=== PATIENT | male | born 1975 | race Caucasian/White ===

== ENCOUNTER 2023-04-30 11:31 | Observation (INO) ==
[2023-04-30] MEDS ORDERED: KETOROLAC TROMETHAMINE 15 MG/ML VIAL IV STA (12:23)
[2023-04-30] MEDS ORDERED: ONDANSETRON INJ 2 MG/ML 2 ML VIAL IV STA (12:23)
[2023-04-30] MEDS ORDERED: SODIUM CHLORIDE 0.9% 1,000 ML IV ONE (12:23)
[2023-04-30 12:48] LABS: Basophils # (auto) 0.04 K/uL (0.00-0.20); Basophils % (auto) 0.4 %; Eosinophils # (auto) 0.13 K/uL (0.00-0.50); Eosinophils % (auto) 1.1 %; Hematocrit (blood only) 42.9 % (42.0-52.0); Hemoglobin 15.2 g/dl (14.0-18.0); Immature Granulocytes # (auto) 0.05 K/uL (0.01-0.20); Immature Granulocytes % (auto) 0.4 %; Lymphocytes # (auto) 2.49 K/uL (1.20-3.40); Lymphocytes % (auto) 21.9 %; Mean Corpuscular Hemoglobin 30.2 pg (25.0-34.0); Mean Corpuscular Hgb Conc 35.4 g/dL (32.0-36.0); Mean Corpuscular Volume 85.3 fL (80.0-100.0); Mean Platelet Volume 10.1 fL (9.4-12.4); Monocytes # (auto) 0.86 K/uL (0.11-0.59); Monocytes % (auto) 7.6 %; Neutrophils # (auto) 7.78 K/uL (1.40-6.50); Neutrophils % (auto) 68.6 %; Platelet Count 248 K/uL (130-400); RDW Coefficient of Variation 13.2 % (11.5-14.5); RDW Standard Deviation 40.9 fL (36.4-46.3); Red Blood Count 5.03 M/uL (4.70-6.10); White Blood Count 11.35 K/ul (4.8-10.8)
[2023-04-30 12:56] LABS: Appearance Urine Clear (Clear); Bilirubin Urine Negative (Negative); Blood Urine Negative (Negative); Color Urine Yellow; Glucose Urine UA Negative (Negative); Ketones Urine Negative (Negative); Leukocyte Esterase Urine Negative (Negative); Nitrite Urine Negative (Negative); Protein Urine Negative (Negative); Specific Gravity Urine 1.009 (1.000-1.030); Urobilinogen Urine Negative (Negative)
[2023-04-30 13:03] LABS: Albumin Level 4.5 gm/dl (3.4-5.0); BUN Creatinine Ratio 13.9 (10-20); Bilirubin Direct 0.1 mg/dl (0-0.2); Bilirubin,Total 0.5 mg/dl (0.2-1.0); Calcium 9.4 mg/dl (8.6-10.3); Creatinine Clr Calc Pharmacy 87.4 ml/min; Est GFR (African American) 80.2 ml/min; Est GFR (Non-African American) 69.2 ml/min; Potassium 3.7 mmol/L (3.5-5.1); Total Protein 8.2 gm/dl (6.0-8.3)
[2023-04-30] MEDS ORDERED: OPTIRAY 320 100ml IV ONE (14:06)
--- NOTE | 2023-04-30 14:34 | CT Scan Report ---
ABDOMEN AND PELVIS CT WITH IV CONTRAST CT DOSE: 1430.2 mGy.cm HISTORY: Left lower quadrant abdominal pain. TECHNIQUE: Multiaxial CT images of the abdomen and pelvis were performed following the use of intrave nous contrast. A dose lowering technique was utilized adhering to the principles of ALARA. COMPARISON STUDY: None. FINDINGS: The lung bases are clear. No acute fractures identified. Mild hepatic steatosis. The gallbl adder, pancreas, spleen, and adrenal glands are within normal limits. Bilateral nephrolithiasis. No u reteral stones. No hydronephrosis. There are few small bilateral renal hypodense lesions. The majorit y these are subcentimeter in size and therefore too small to characterize. Statistically these repres ent cysts. There is a 1.1 cm exophytic hypodense lesion within the right kidney which also favors a c yst. The main portal vein is patent. Normal caliber abdominal aorta. No retroperitoneal or pelvic lym phadenopathy. The bladder is unremarkable. No pelvic free fluid. There is an inflamed diverticulum wi thin the proximal sigmoid colon with focal bowel wall thickening at this location. There is associate d pericolonic fat stranding and a punctate focus of extraluminal gas adjacent to the diverticulum. Th erefore, this is consistent with microperforation of an acute sigmoid diverticulitis. No loculated fl uid collections to suggest an abscess. No evidence for a bowel obstruction. Normal appendix. IMPRESSION: 1. Acute sigmoid diverticulitis with a punctate focus of extraluminal gas consistent with microperfor ation. No abscess identified at this time. 2. Normal appendix. 3. No evidence for a bowel obstruction. 4. Bilateral nephrolithiasis. No ureteral stones. No hydronephrosis. 5. Mild hepatic steatosis. ACT 112: Negative or not required by law. Electronically signed by: Chris Marie M.D. 04/30/2023 2:33 PM
[2023-04-30] MEDS ORDERED: PIPERACILLIN/TAZOBACTAM 4.5 GM/120 ML BAG IV ONE (14:42)
--- NOTE | 2023-04-30 15:14 | History & Physical Report ---
Date of Service April 30, 2023 Assessment & Plan (1) Abdominal pain: Plan: 47 yo male with PMHx of HLD, hypothyroidism, and HIV prophylaxis on PrEP presents with abdominal pain. #Diverticulitis with microperforation -presents with 5 days abd discomfort. Mildly elevated WBC. Did not meet SIRS criteria on admission. -CT A/P: acute sigmoid diverticulitis with a punctate focus of extraluminal gas consistent with microperforation. No abscess identified at this time. -gen surg consulted- no surgical intervention at this time, will cont. to monitor -given zosyn x1 in ED. Will continue this. -NPO (sips of clear liquid okay per surgery), IVF, pain control #Hypothyroidism -cont. levothyroxine #HIV prophylaxis -on Descovy for PrEP DVT ppx: SCDs; will avoid chemical in case of future surgical intervention FEN/GI: NPO Code Status: Full Dispo: Med Surg (2) Perforation of sigmoid colon due to diverticulitis: (3) Hypothyroidism: (4) Hyperlipidemia: (5) High risk sexual behavior: History of Present Illness Chief Complaint: abdominal pain Primary Care Provider: Dwayne Perez MD 47 yo male with PMHx of HLD, hypothyroidism, and HIV prophylaxis on PrEP presents with abdominal pain. 5 days ago patient started feeling abdominal discomfort especially with bowel movements. A couple of days later he started developing fever, chills, fatigue, muscle weakness, constipation and headache. Denies chest pain, shortness of breath, dysuria, N/V/D, blood in stool. He did take some Tylenol at home which did seem to help. No h/o abdominal surgeries. Allergies Allergy/AdvReac Type Severity Reaction Status Date / Time No Known Drug Allergies Allergy Unknown Verified 04/30/23 15:38 Home Medications Medication Instructions Recorded Confirmed Type cetirizine 10 mg capsule (Zyrtec) 20 mg PO DAILY 08/13/20 04/30/23 History emtricitabine 200 mg-tenofovir 1 tab PO DAILY #90 tabs 11/16/22 04/30/23 Rx alafenamide fumarate 25 mg tablet (Descovy) Tirosint 125 mcg capsule 125 mcg PO DAILY #90 caps 03/26/23 04/30/23 Rx (levothyroxine) Past Med/Surg History Medical History Animal bite of lower leg Hyperlipidemia Hypothyroidism Obesity (BMI 30.0-34.9) Surgical History History of cosmetic surgery (~2006) No significant past surgical history Family History Mother Hypothyroidism Hypertension Father Hypertension Prostate cancer Stroke Sister Hypothyroidism Lung disease Aunt Breast cancer Denies family history of Ovarian cancer Myocardial infarction Colorectal cancer Social History Smoking Status: Never smoker Tobacco Type: Cigarettes Age Started Using Tobacco: 18; Age Quit Using Tobacco: 26; packs per day: 0.25; Cigarettes Per Day: 5-10; Second Hand Exposure: No; Do You Dip or Chew Tobacco: No; Hx Alcohol Use: Yes Alcohol type: wine Alcohol Intake Frequency: Monthly or Less Hx Substance Use: No Preferred Language: Uzbek Visual Impairment: Limited Hearing Ability: Normal 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 AOx.3. Vitals as above. HEENT: No scleral injection or discharge. Moist mucous membranes. Neck: Supple without lymphadenopathy or thyromegaly. Trachea midline. Lungs: CTAB, no wheezes/rales/rhonchi. Cardiac: Regular rate and rhythm.No murmurs.No extremity edema. 2+ distal peripheral pulses. Abdomen: Soft and nondistended.+tenderness specifically at LLQ without guarding.No hepatosplenomegaly. MSK: No cyanosis or clubbing. Extremities motor strength 5/5. Skin: No rashes, warm, dry. Neurologic: no focal deficits Results & Data Results & Data Vital Signs (Past 12 Hours) Vital Signs Temp Pulse Pulse Resp BP BP Pulse Ox 04/30/23 14:14 80 18 141/98 H 98 04/30/23 12:00 94 H 18 136/92 95 04/30/23 12:23 96 04/30/23 11:42 36.8 C 97 H 19 134/94 96 O2 Del Method 04/30/23 14:14 Room Air 04/30/23 12:00 Room Air 04/30/23 12:23 Room Air 04/30/23 11:42 Room Air Laboratory Results Laboratory Results WBC 11.35 K/ul (4.8-10.8) H 04/30/23 12:06 RBC 5.03 M/uL (4.70-6.10) 04/30/23 12:06 Hgb 15.2 g/dl (14.0-18.0) 04/30/23 12:06 Hct 42.9 % (42.0-52.0) 04/30/23 12:06 MCV 85.3 fL (80.0-100.0) 04/30/23 12:06 MCH 30.2 pg (25.0-34.0) 04/30/23 12:06 MCHC 35.4 g/dL (32.0-36.0) 04/30/23 12:06 RDW Std Deviation 40.9 fL (36.4-46.3) 04/30/23 12:06 RDW Coeff of Viviane 13.2 % (11.5-14.5) 04/30/23 12:06 Plt Count 248 K/uL (130-400) 04/30/23 12:06 MPV 10.1 fL (9.4-12.4) 04/30/23 12:06 Immature Gran % (Auto) 0.4 % 04/30/23 12:06 Neut % (Auto) 68.6 % 04/30/23 12:06 Lymph % (Auto) 21.9 % 04/30/23 12:06 [place] % (Auto) 7.6 % 04/30/23 12:06 Eos % (Auto) 1.1 % 04/30/23 12:06 Baso % (Auto) 0.4 % 04/30/23 12:06 Neut # (Auto) 7.78 K/uL (1.40-6.50) H 04/30/23 12:06 Lymph # (Auto) 2.49 K/uL (1.20-3.40) 04/30/23 12:06 [place] # (Auto) 0.86 K/uL (0.11-0.59) H 04/30/23 12:06 Eos # (Auto) 0.13 K/uL (0.00-0.50) 04/30/23 12:06 Baso # (Auto) 0.04 K/uL (0.00-0.20) 04/30/23 12:06 Immature Gran # (Auto) 0.05 K/uL (0.01-0.20) 04/30/23 12:06 Sodium 138 mmol/L (136-145) 04/30/23 12:06 Potassium 3.7 mmol/L (3.5-5.1) 04/30/23 12:06 Chloride 107 mmol/L (98-107) 04/30/23 12:06 Carbon Dioxide 23 mmol/L (21-32) 04/30/23 12:06 Anion Gap 8 (3-11) 04/30/23 12:06 BUN 17 mg/dl (6-23) 04/30/23 12:06 Creatinine 1.22 mg/dl (0.6-1.4) 04/30/23 12:06 Est Cr Clr Drug Dosing 87.4 ml/min 04/30/23 12:06 Est GFR ( Amer) 80.2 ml/min 04/30/23 12:06 Est GFR (Non-Af Amer) 69.2 ml/min 04/30/23 12:06 BUN/Creatinine Ratio 13.9 (-20) 04/30/23 12:06 Glucose 115 mg/dl (70-99(Fasting)) H 04/30/23 12:06 Calcium 9.4 mg/dl (8.6-10.3) 04/30/23 12:06 Total Bilirubin 0.5 mg/dl (0.2-1.0) 04/30/23 12:06 Direct Bilirubin 0.1 mg/dl (0-0.2) 04/30/23 12:06 AST 16 U/L (13-39) 04/30/23 12:06 ALT 13 U/L (7-52) 04/30/23 12:06 Alkaline Phosphatase 53 U/L (34-104) 04/30/23 12:06 Total Protein 8.2 gm/dl (6.0-8.3) 04/30/23 12:06 Albumin 4.5 gm/dl (3.4-5.0) 04/30/23 12:06 Lipase 49 U/L (11-82) 04/30/23 12:06 Urine Color Yellow 04/30/23 Unknown Urine Appearance Clear (Clear) 04/30/23 Unknown Urine pH 5.0 (4.5-7.5) 04/30/23 Unknown Ur Specific [place] 1.009 (1.000-1.030) 04/30/23 Unknown Urine Protein Negative (Negative) 04/30/23 Unknown Urine Glucose (UA) Negative (Negative) 04/30/23 Unknown Urine Ketones Negative (Negative) 04/30/23 Unknown Urine Blood Negative (Negative) 04/30/23 Unknown Urine Nitrite Negative (Negative) 04/30/23 Unknown Urine Bilirubin Negative (Negative) 04/30/23 Unknown Urine Urobilinogen Negative (Negative) 04/30/23 Unknown Ur Leukocyte Esterase Negative (Negative) 04/30/23 Unknown Impressions Abdomen/Pelvis CT 04/30/23 12:[address] WITH IV CONTRAST CT DOSE: 1430.2 mGy.cm HISTORY: Left lower quadrant abdominal pain. TECHNIQUE: Multiaxial CT images of the abdomen and pelvis were performed following the use of intravenous contrast. A dose lowering technique was utilized adhering to the principles of ALARA. COMPARISON STUDY: None. FINDINGS: The lung bases are clear. No acute fractures identified. Mild hepatic steatosis. The gallbladder, pancreas, spleen, and adrenal glands are within normal limits. Bilateral nephrolithiasis. No ureteral stones. No hydronephrosis. There are few small bilateral renal hypodense lesions. The majority these are subcentimeter in size and therefore too small to characterize. Statistically these represent cysts. There is a 1.1 cm exophytic hypodense lesion within the right kidney which also favors a cyst. The main portal vein is patent. Normal caliber abdominal aorta. No retroperitoneal or pelvic lymphadenopathy. The bladder is unremarkable. No pelvic free fluid. There is an inflamed diverticulum within the proximal sigmoid colon with focal bowel wall thickening at this location. There is associated pericolonic fat stranding and a punctate focus of extraluminal gas adjacent to the diverticulum. Therefore, this is consistent with microperforation of an acute sigmoid diverticulitis. No loculated fluid collections to suggest an abscess. No evidence for a bowel obstruction. Normal appendix. IMPRESSION: 1. Acute sigmoid diverticulitis with a punctate focus of extraluminal gas consistent with microperforation. No abscess identified at this time. 2. Normal appendix. 3. No evidence for a bowel obstruction. 4. Bilateral nephrolithiasis. No ureteral stones. No hydronephrosis. 5. Mild hepatic steatosis. ACT 112: Negative or not required by law. Electronically signed by: Chris Marie M.D. 04/30/2023 2:33 PM Supervising Physician Co-Signing Physician Notes Attending addendum: I have physically seen this patient, have supervised the medical residents activities, and agree with the H&P unless as otherwise noted. Assessment and Plan: Acute sigmoid diverticulitis with microperforation- N.p.o. except essential medications Zosyn 4.5 g IV every 8 hours Status post NSS 1 L in the ED Continue IV fluids as noted Serial CBC with differential and chemistry profile Zofran 4 mg IV every 6 hours as needed Consult general surgery HIV- Continue Descovy Mild hepatic steatosis- Noted on CT Normal LFTs Can be followed serially Resident Activity Tracking Resident Involvement: Resident Care Provided Care Provided: Adult [facility]
--- NOTE | 2023-04-30 15:26 | Surgery Consultation ---
Date of Consultation April 30, 2023 Assessment & Plan (1) Perforation of sigmoid colon due to diverticulitis: 47-year-old male with uncomplicated diverticulitis and microperforation. No surgical indication at this time Recommend IV antibiotics, bowel rest, he may have sips of clear liquids for comfort Surgery will follow, call with questions or concerns (2) Obesity (BMI 30.0-34.9): (3) Hypothyroidism: History of Present Illness History of Present Illness 47-year-old male presented to emergency department with chief complaint of left lower quadrant pelvic abdominal pain. Symptoms started earlier in the week and is gotten slightly worse. He did notice some irregularities bowel movements over the past day or 2. He has never had symptoms like this before. He did report a low-grade fever at home. He had a colonoscopy in 2018 which was reportedly normal. Does note a family history of diverticulitis as he thinks his father had this in the past. No family history of Crohn's or UC. Not on any blood thinners, no prior abdominal surgery Allergies Allergy/AdvReac Type Severity Reaction Status Date / Time No Known Drug Allergies Allergy Unknown Verified 03/18/23 08:15 Home Medications Medication Instructions Recorded Confirmed Type ascorbate calcium (vitamin C) 500 500 mg PO DAILY 07/15/20 03/18/23 History mg tablet cetirizine 10 mg capsule (Zyrtec) 20 mg PO DAILY PRN Allergy Symptoms 08/13/20 03/18/23 History cholecalciferol (vitamin D3) 125 10,000 unit PO DAILY 08/13/20 03/18/23 History mcg (5,000 unit) capsule emtricitabine 200 mg-tenofovir 1 tab PO DAILY #90 tabs 11/16/22 03/18/23 Rx alafenamide fumarate 25 mg tablet (Descovy) Tirosint 125 mcg capsule 125 mcg PO DAILY #90 caps 03/26/23 Rx (levothyroxine) Patient History Medical History Animal bite of lower leg Hyperlipidemia Hypothyroidism Obesity (BMI 30.0-34.9) Surgical History History of cosmetic surgery (~2006) No significant past surgical history Family History Mother Hypothyroidism Hypertension Father Hypertension Prostate cancer Stroke Sister Hypothyroidism Lung disease Aunt Breast cancer Denies family history of Ovarian cancer Myocardial infarction Colorectal cancer Social History Smoking Status: Never smoker Tobacco Type: Cigarettes Age Started Using Tobacco: 18; Age Quit Using Tobacco: 26; packs per day: 0.25; Cigarettes Per Day: 5-10; Second Hand Exposure: No; Do You Dip or Chew Tobacco: No; Hx Alcohol Use: Yes Alcohol type: wine Alcohol Intake Frequency: Monthly or Less Hx Substance Use: No Preferred Language: Greek Visual Impairment: Limited Hearing Ability: Normal Part Time Receptionist Required: No marital status: Single Current Living Situation: Alone 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 Diet: regular Dental Care, Regularly: No Review of Systems Review of Systems: All systems reviewed & are unremarkable except as noted in HPI & below Physical Exam Constitutional: WD/WN, vitals as above + obese Respiratory: normal respiratory effort, lungs clear to auscultation Cardiovascular: RRR, no murmur, no edema Gastrointestinal (Abdomen): Percussion/Palpation: + abdomen tender (Left lower quadrant tenderness to palpation) and abdomen soft; no guarding and abdomen not rigid Results & Data Vital Signs (Past 12 Hours) Vital Signs Temp Pulse Pulse Resp BP BP Pulse Ox 04/30/23 14:14 80 18 141/98 H 98 04/30/23 12:00 94 H 18 136/92 95 04/30/23 12:23 96 04/30/23 11:42 36.8 C 97 H 19 134/94 96 O2 Del Method 04/30/23 14:14 Room Air 04/30/23 12:00 Room Air 04/30/23 12:23 Room Air 04/30/23 11:42 Room Air Laboratory Results Laboratory Results - last 24 hr 04/30/23 04/30/23 04/30/23 12:06 12:06 Unknown WBC 11.35 H RBC 5.03 Hgb 15.2 Hct 42.9 MCV 85.3 MCH 30.2 MCHC 35.4 RDW Std Deviation 40.9 RDW Coeff of Viviane 13.2 Plt Count 248 MPV 10.1 Immature Gran % (Auto) 0.4 Neut % (Auto) 68.6 Lymph % (Auto) 21.9 [place] % (Auto) 7.6 Eos % (Auto) 1.1 Baso % (Auto) 0.4 Neut # (Auto) 7.78 H Lymph # (Auto) 2.49 [place] # (Auto) 0.86 H Eos # (Auto) 0.13 Baso # (Auto) 0.04 Immature Gran # (Auto) 0.05 Sodium 138 Potassium 3.7 Chloride 107 Carbon Dioxide 23 Anion Gap 8 BUN 17 Creatinine 1.22 Est Cr Clr Drug Dosing 87.4 Est GFR ( Amer) 80.2 Est GFR (Non-Af Amer) 69.2 BUN/Creatinine Ratio 13.9 Glucose 115 H Calcium 9.4 Total Bilirubin 0.5 Direct Bilirubin 0.1 AST 16 ALT 13 Alkaline Phosphatase 53 Total Protein 8.2 Albumin 4.5 Lipase 49 Urine Color Yellow Urine Appearance Clear Urine pH 5.0 Ur Specific [place] 1.009 Urine Protein Negative Urine Glucose (UA) Negative Urine Ketones Negative Urine Blood Negative Urine Nitrite Negative Urine Bilirubin Negative Urine Urobilinogen Negative Ur Leukocyte Esterase Negative Diagnostic Findings Personally viewed the CT scan agree with the assessment of diverticulitis with small microperforation. No evidence of abscess. ABDOMEN AND PELVIS CT WITH IV CONTRAST CT DOSE: 1430.2 mGy.cm HISTORY: Left lower quadrant abdominal pain. TECHNIQUE: Multiaxial CT images of the abdomen and pelvis were performed following the use of intravenous contrast. A dose lowering technique was utilized adhering to the principles of ALARA. COMPARISON STUDY: None. FINDINGS: The lung bases are clear. No acute fractures identified. Mild hepatic steatosis. The gallbladder, pancreas, spleen, and adrenal glands are within normal limits. Bilateral nephrolithiasis. No ureteral stones. No hydronephrosis. There are few small bilateral renal hypodense lesions. The majority these are subcentimeter in size and therefore too small to characterize. Statistically these represent cysts. There is a 1.1 cm exophytic hypodense lesion within the right kidney which also favors a cyst. The main portal vein is patent. Normal caliber abdominal aorta. No retroperitoneal or pelvic lymphadenopathy. The bladder is unremarkable. No pelvic free fluid. There is an inflamed diverticulum within the proximal sigmoid colon with focal bowel wall thickening at this location. There is associated pericolonic fat stranding and a punctate focus of extraluminal gas adjacent to the diverticulum. Therefore, this is consistent with microperforation of an acute sigmoid diverticulitis. No loculated fluid collections to suggest an abscess. No evidence for a bowel obstruction. Normal appendix. IMPRESSION: 1. Acute sigmoid diverticulitis with a punctate focus of extraluminal gas consistent with microperforation. No abscess identified at this time. 2. Normal appendix. 3. No evidence for a bowel obstruction. 4. Bilateral nephrolithiasis. No ureteral stones. No hydronephrosis. 5. Mild hepatic steatosis. PG Care Time/CCT Total # of Minutes Spent Total Time Spent with Patient: Total time spent is greater than 50% in coordination of care (as documented) at patient's floor/unit and/or counseling patient: Coding Level of Care Code 03331 OFFICE CONSULT LVL Diagnoses Perforation of sigmoid colon due to diverticulitis K57.20 Obesity (BMI 30.0-34.9) E66.9 Hypothyroidism E03.9
--- NOTE | 2023-04-30 15:39 | Emergency Department Note ---
History of Present Illness General Chief Complaint: Abdominal Pain Stated Complaint: FEVER,ABD PAIN,SLIGHT FLANK PAIN Time Seen by Provider: 04/30/23 12:22 History of Present Illness Provider Complaint: abdominal pain Onset (ago): 4 day(s) Pain Consistency: constant Location: LLQ Severity: moderate Maximum Pain Intensity: 4 Current Pain Intensity: 4 Quality: + stabbing and + sharp Relieved By: + nothing Exacerbated By: + nothing Context: + possible food poisoning; no foreign travel, no sick contacts, no recent antibiotic use, no recent surgery/procedure or no recent injury Associated Symptoms: no nausea, no vomiting, no diarrhea, no fever, no chills, no constipation, no dysuria, no hematemesis, no hematochezia, no melena, no he maturia, no syncope, no headache, no back pain, no chest pain and no breathing difficulty Home Medications Medication Instructions Recorded Confirmed Type cetirizine 10 mg capsule (Zyrtec) 20 mg PO DAILY 08/13/20 04/30/23 History emtricitabine 200 mg-tenofovir 1 tab PO DAILY #90 tabs 11/16/22 04/30/23 Rx alafenamide fumarate 25 mg tablet (Descovy) Tirosint 125 mcg capsule 125 mcg PO DAILY #90 caps 03/26/23 04/30/23 Rx (levothyroxine) Allergies Allergy/AdvReac Type Severity Reaction Status Date / Time No Known Drug Allergies Allergy Unknown Verified 04/30/23 15:38 Past Med/Surg History Medical History Animal bite of lower leg Hyperlipidemia Hypothyroidism Obesity (BMI 30.0-34.9) Surgical History History of cosmetic surgery (~2006) No significant past surgical history Family History Mother Hypothyroidism Hypertension Father Hypertension Prostate cancer Stroke Sister Hypothyroidism Lung disease Aunt Breast cancer Denies family history of Ovarian cancer Myocardial infarction Colorectal cancer Social History Smoking Status: Never smoker Tobacco Type: Cigarettes Age Started Using Tobacco: 18; Age Quit Using Tobacco: 26; packs per day: 0.25; Cigarettes Per Day: 5-10; Second Hand Exposure: No; Do You Dip or Chew Tobacco: No; Hx Alcohol Use: Yes Alcohol type: wine Alcohol Intake Frequency: Monthly or Less Hx Substance Use: No Preferred Language: [place] Leonean Visual Impairment: Limited Hearing Ability: Normal 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 Required: No marital status: Single Current Living Situation: Alone 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 Diet: regular Dental Care, Regularly: No Physical Exam Vital Signs: Vital Signs - 24 hr 04/30/23 11:42 04/30/23 12:23 04/30/23 12:00 Temperature 36.8 C Temperature Source Temporal Artery Sc an Pulse Rate 97 H Pulse Rate [Right Finger] 94 H Pulse Rhythm [Righ t Finger] Regular Pulse Strength [Ri ght Finger] Normal Respiratory Rate 19 18 Respiratory Effort / Characteristics Non-Labored Non-Labored Sponta neous Respiratory Depth Normal Normal Respiratory Patter n Regular Blood Pressure 134/94 Blood Pressure [Ri ght Arm] 136/92 Blood Pressure Sasha n 107 Blood Pressure Sasha n [Right Arm] 106 Blood Pressure Pos ition [Right Arm] Pulse Oximetry 96 96 95 Oxygen Delivery Me thod Room Air Room Air Room Air Sepsis Recent Feve r Within 48 Hours Yes Sepsis New/Unexpla ined Change in Men bruce Status No Sepsis Action Take n by Nursing No Action Required 04/30/23 14:14 Temperature Temperature Source Pulse Rate Pulse Rate [Right Finger] 80 Pulse Rhythm [Righ t Finger] Regular Pulse Strength [Ri ght Finger] Respiratory Rate 18 Respiratory Effort / Characteristics Non-Labored Sponta neous Respiratory Depth Normal Respiratory Patter n Regular Blood Pressure Blood Pressure [Ri ght Arm] 141/98 H Blood Pressure Sasha n Blood Pressure Sasha n [Right Arm] 112 Blood Pressure Pos ition [Right Arm] Lying Pulse Oximetry 98 Oxygen Delivery Me thod Room Air Sepsis Recent Feve r Within 48 Hours Sepsis New/Unexpla ined Change in Men bruce Status Sepsis Action Take n by Nursing Physical Exam: Physical Exam GENERAL: She is oriented to person, place, and time. She appears well-developed and well-nourished. She does not appear distressed. HENT: Exam performed. -Head: Normocephalic and atraumatic. -Right Ear: External ear normal. No mastoid erythema -Left Ear: External ear normal. No mastoid erythema -Mouth/Throat: The oropharynx is clear and moist. No trismus in the jaw. No dental abscesses or uvula swelling. No oropharyngeal exudate or tonsillar abscesses. EYES: Conjunctivae and EOM are normal.Right eye exhibits no discharge. Left eye exhibits no discharge. No scleral icterus. NECK: Normal range of motion. Neck supple. No JVD present. No tracheal deviation and normal range of motion present. CV: Normal rate, regular rhythm, normal heart sounds and intact distal pulses. There is no peripheral edema. Palpable radial pulses bue. PULM/CHEST: Effort normal and breath sounds normal. No respiratory distress. No stridor. She has no wheezes. She has no rales. -Chest Wall: She exhibits no tenderness. ABD: The abdomen is soft. Bowel sounds are normal. She has no distension. No mass is present. There is tenderness to palpation of the left lower quadrant. There is no rebound, no guarding, no Barragan's sign and no tenderness at McBurney's point. Rovsig negative MUSC/SKEL: Normal range of motion. There is no peripheral edema, tenderness or deformity. NEURO: Motor and sensation grossly intact. SKIN: Skin is warm and dry. She is not diaphoretic. PSYCH: She has a normal mood and affect. Behavior is normal. Judgment and thoug ht content normal. Course Course 1222: The patient was evaluated in room A4. A complete history and physical exam was performed Cardiac monitoring: An order was placed for continuous cardiac monitoring. The monitor shows a rate of 80 with sinus rhythm interpreted by me 1539: Vital signs stable. Labs within normal limits. Imaging shows diverticulitis with microperforation. Patient be admitted to the hospital and t reated with Zosyn. Patient be admitted to the medicine team [facility] Dr. Bird's team notified. Dr. Escobar general surgery will be placed on consult and he has evaluated the patient in the emergency department and agrees with this plan. Administered Medications Discontinued Medications Sodium Chloride (Nss) 1,000 mls @ 999 mls/hr IV .Q1H1M ONE Stop: 04/30/23 13:23 Last Infusion: 04/30/23 14:12 Dose: 0 mls/hr Documented By: Admin: 04/30/23 12:36 Dose: 999 mls/hr Documented By: JYOTSNA Ioversol (Optiray 320 100ml) 91 ml IV ONCE ONE Stop: 04/30/23 14:07 Last Admin: 04/30/23 14:06 Dose: 91 ml Documented By: MATTY Ketorolac Tromethamine (Ketorolac Tromethamine 15 Mg/Ml Vial) 15 mg IV NOW STA Stop: 04/30/23 12:24 Last Admin: 04/30/23 12:47 Dose: 15 mg Documented By: JYOTSNA Ondansetron HCl (Ondansetron Inj 2 Mg/Ml 2 Ml Vial) 4 mg IV NOW STA Stop: 04/30/23 12:24 Last Admin: 04/30/23 12:47 Dose: 4 mg Documented By: JYOTSNA Medical Decision Making Laboratory Data Attestation: I reviewed the patient's lab results. 04/30/23 12:06 04/30/23 12:06 Lab Results 04/30/23 04/30/23 04/30/23 Range/Units 12:06 12:06 Unknown WBC 11.35 H (4.8-10.8) K/ul RBC 5.03 (4.70-6.10) M/uL Hgb 15.2 (14.0-18.0) g/dl Hct 42.9 (42.0-52.0) % MCV 85.3 (80.0-100.0) fL MCH 30.2 (25.0-34.0) pg MCHC 35.4 (32.0-36.0) g/dL RDW Std Deviation 40.9 (36.4-46.3) fL RDW Coeff of Viviane 13.2 (11.5-14.5) % Plt Count 248 (130-400) K/uL MPV 10.1 (9.4-12.4) fL Immature Gran % (Auto) 0.4 % Neut % (Auto) 68.6 % Lymph % (Auto) 21.9 % [place] % (Auto) 7.6 % Eos % (Auto) 1.1 % Baso % (Auto) 0.4 % Neut # (Auto) 7.78 H (1.40-6.50) K/uL Lymph # (Auto) 2.49 (1.20-3.40) K/uL [place] # (Auto) 0.86 H (0.11-0.59) K/uL Eos # (Auto) 0.13 (0.00-0.50) K/uL Baso # (Auto) 0.04 (0.00-0.20) K/uL Immature Gran # (Auto) 0.05 (0.01-0.20) K/uL Sodium 138 (136-145) mmol/L Potassium 3.7 (3.5-5.1) mmol/L Chloride 107 (98-107) mmol/L Carbon Dioxide 23 (21-32) mmol/L Anion Gap 8 (3-11) BUN 17 (6-23) mg/dl Creatinine 1.22 (0.6-1.4) mg/dl Est Cr Clr Drug Dosing 87.4 ml/min Est GFR ( Amer) 80.2 ml/min Est GFR (Non-Af Amer) 69.2 ml/min BUN/Creatinine Ratio 13.9 (10-20) Glucose 115 H (70-99(Fasting)) mg/dl Calcium 9.4 (8.6-10.3) mg/dl Total Bilirubin 0.5 (0.2-1.0) mg/dl Direct Bilirubin 0.1 (0-0.2) mg/dl AST 16 (13-39) U/L ALT 13 (7-52) U/L Alkaline Phosphatase 53 (34-104) U/L Total Protein 8.2 (6.0-8.3) gm/dl Albumin 4.5 (3.4-5.0) gm/dl Lipase 49 (11-82) U/L Urine Color Yellow Urine Appearance Clear (Clear) Urine pH 5.0 (4.5-7.5) Ur Specific [place] 1.009 (1.000-1.030) Urine Protein Negative (Negative) Urine Glucose (UA) Negative (Negative) Urine Ketones Negative (Negative) Urine Blood Negative (Negative) Urine Nitrite Negative (Negative) Urine Bilirubin Negative (Negative) Urine Urobilinogen Negative (Negative) Ur Leukocyte Esterase Negative (Negative) Imaging Data Radiologist's Impression: Abdomen/Pelvis CT 04/30/23 12:[address] WITH IV CONTRAST CT DOSE: 1430.2 mGy.cm HISTORY: Left lower quadrant abdominal pain. TECHNIQUE: Multiaxial CT images of the abdomen and pelvis were performed following the use of intravenous contrast. A dose lowering technique was utilized adhering to the principles of ALARA. COMPARISON STUDY: None. FINDINGS: The lung bases are clear. No acute fractures identified. Mild hepatic steatosis. The gallbladder, pancreas, spleen, and adrenal glands are within normal limits. Bilateral nephrolithiasis. No ureteral stones. No hydronephrosis. There are few small bilateral renal hypodense lesions. The majority these are subcentimeter in size and therefore too small to characterize. Statistically these represent cysts. There is a 1.1 cm exophytic hypodense lesion within the right kidney which also favors a cyst. The main portal vein is patent. Normal caliber abdominal aorta. No retroperitoneal or pelvic lymphadenopathy. The bladder is unremarkable. No pelvic free fluid. There is an inflamed diverticulum within the proximal sigmoid colon with focal bowel wall thickening at this location. There is associated pericolonic fat stranding and a punctate focus of extraluminal gas adjacent to the diverticulum. Therefore, this is consistent with microperforation of an acute sigmoid diverticulitis. No loculated fluid collections to suggest an abscess. No evidence for a bowel obstruction. Normal appendix. IMPRESSION: 1. Acute sigmoid diverticulitis with a punctate focus of extraluminal gas consistent with microperforation. No abscess identified at this time. 2. Normal appendix. 3. No evidence for a bowel obstruction. 4. Bilateral nephrolithiasis. No ureteral stones. No hydronephrosis. 5. Mild hepatic steatosis. ACT 112: Negative or not required by law. Electronically signed by: Chris Marie M.D. 04/30/2023 2:33 PM [facility] Narrative 1222: The patient was evaluated in room A4. A complete history and physical exam was performed Cardiac monitoring: An order was placed for continuous cardiac monitoring. The monitor shows a rate of 80 with sinus rhythm interpreted by wi 1539: Vital signs stable. Labs within normal limits. Imaging shows diverticulitis with microperforation. Patient be admitted to the hospital and treated with Zosyn. Patient be [facility] to the medicine team [facility] notified. Dr. Escobar general surgery will be placed on con sult and he has evaluated the patient in the emergency department and agrees with this plan. Impression & Plan Diverticulitis of colon with perforation Discharge Plan Visit Data Chief Complaint: Abdominal Pain Stated Complaint: FEVER,ABD PAIN,SLIGHT FLANK PAIN ED Provider: Hector,Duc Discharge Problem: Diverticulitis of colon with perforation Patient Disposition: Admitted As Inpatient Forms Stand Alone Forms: My [facility] Prescriptions Prescriptions: No Action Descovy 200-25 mg tablet 1 tab PO DAILY Qty: 90 1RF levothyroxine [Tirosint] 125 mcg capsule 125 mcg PO DAILY Qty: 90 0RF ascorbate calcium (vitamin C) 500 mg tablet 500 mg PO DAILY cholecalciferol (vitamin D3) 125 mcg (5,000 unit) capsule 10,000 unit PO DAILY Zyrtec 10 mg capsule 20 mg PO DAILY PRN (Reason: Allergy Symptoms) Referrals Referrals: Dwayne Perez MD [Primary Care Provider] -
--- NOTE | 2023-04-30 17:58 | Billing Data ---
Date of Service April 30, 2023 Coding Level of Care Code 19390 INT INP/OBS CARE
[2023-04-30] MEDS ORDERED: KETOROLAC TROMETHAMINE 15 MG/ML VIAL IV PRN (18:04)
[2023-04-30] MEDS ORDERED: ONDANSETRON INJ 2 MG/ML 2 ML VIAL IV PRN (18:04)
[2023-04-30] MEDS: SODIUM CHLORIDE 0.9% 1,000 ML IV SCH (18:33)
[2023-04-30] MEDS: ACETAMINOPHEN 1,000 MG/100 ML VIAL IV PRN (21:29)
[2023-04-30] MEDS: PIPERACILLIN/TAZOBACTAM 4.5 GM in DEXTROSE 5% MINI-B 100 ML IV SCH (21:48)
[2023-05-01] MEDS: SODIUM CHLORIDE 0.9% 1,000 ML IV SCH ×2 (02:04→10:19)
--- NOTE | 2023-05-01 05:36 | Surgery Progress Note ---
Date of Service May 01, 2023 Assessment & Plan (1) Diverticulitis of colon with perforation: Plan: The patient has been admitted on the hospitalist service. We recommend proceeding as follows: CT scan of the abdomen and pelvis at time of admission showed acute sigmoid diverticulitis with a microperforation and no identifiable abscess Would maintain n.p.o. status for the present time Continue IV fluid for hydration Continue analgesics Continue antiemetics Continue antibiotics in form of Zosyn Encourage ambulation Check a.m. labs are available Admission and Anticipated Discharge Date Admission Date: April 30, 2023 Supervising Physician Co-Signing Physician Notes pnt S&E, agree with above. Admitted with uncomplicated diverticulitis with microperf. feels much better, pain improved, no fevers. Tolerated clears for breakfast. abd soft, nt. nd. wbc normal. adv to low fiber as tolerated, likely home tomorrow on 10 days total abx, f/u with pcp, outpatient colonoscopy in 6-8 weeks (last 2017) Subjective Patient is currently resting in bed. He notes that his pain has improved since arrival to the hospital. He denies any fevers, shakes, or chills. He denies any nausea or vomiting. Physical Exam Gastrointestinal (Abdomen): Abdomen is soft, nonrigid, and nondistended. Bowel sounds are hypoactive. There is minimal pain noted with palpation but he did have some discomfort in the left lower quadrant with palpation. Results & Data Vital Signs (Past 12 Hours) Vital Signs Temp Pulse Resp BP Pulse Ox O2 Del Method 04/30/23 22:19 36.8 C 66 17 99/62 L 93 Room Air 04/30/23 18:06 37.1 C 72 16 131/91 96 Room Air PG Care Time/CCT Total # of Minutes Spent Total Time Spent with Patient: Total time spent is greater than 50% in coordination of care (as documented) at patient's floor/unit and/or counseling patient: Coding Level of Care Code 43440 SUB INP/OBS CARE 08/05MIN Diagnoses Diverticulitis of colon with perforation K57.20
[2023-05-01] MEDS: PIPERACILLIN/TAZOBACTAM 4.5 GM in DEXTROSE 5% MINI-B 100 ML IV SCH ×3 (05:49→22:06)
[2023-05-01] MEDS: ACETAMINOPHEN 1,000 MG/100 ML VIAL IV PRN ×2 (05:56→16:32)
[2023-05-01] MEDS: LEVOTHYROXINE SODIUM 125 MCG TABLET PO SCH (06:20)
[2023-05-01 06:33] LABS: Basophils # (auto) 0.05 K/uL (0.00-0.20); Basophils % (auto) 0.7 %; Eosinophils # (auto) 0.21 K/uL (0.00-0.50); Eosinophils % (auto) 2.9 %; Hematocrit (blood only) 38.7 % (42.0-52.0); Hemoglobin 13.1 g/dl (14.0-18.0); Immature Granulocytes # (auto) 0.03 K/uL (0.01-0.20); Immature Granulocytes % (auto) 0.4 %; Lymphocytes # (auto) 2.23 K/uL (1.20-3.40); Lymphocytes % (auto) 31.3 %; Mean Corpuscular Hemoglobin 29.7 pg (25.0-34.0); Mean Corpuscular Hgb Conc 33.9 g/dL (32.0-36.0); Mean Corpuscular Volume 87.8 fL (80.0-100.0); Mean Platelet Volume 9.9 fL (9.4-12.4); Monocytes # (auto) 0.57 K/uL (0.11-0.59); Neutrophils # (auto) 4.03 K/uL (1.40-6.50); Neutrophils % (auto) 56.7 %; Platelet Count 211 K/uL (130-400); RDW Coefficient of Variation 13.1 % (11.5-14.5); RDW Standard Deviation 42.1 fL (36.4-46.3); Red Blood Count 4.41 M/uL (4.70-6.10); White Blood Count 7.12 K/ul (4.8-10.8)
[2023-05-01 07:14] LABS: Albumin Globulin Ratio 1.2 (0.9-2); Albumin Level 3.7 gm/dl (3.4-5.0); BUN Creatinine Ratio 12.6 (10-20); Bilirubin,Total 0.7 mg/dl (0.2-1.0); Calcium 8.4 mg/dl (8.6-10.3); Creatinine Clr Calc Pharmacy 78.8 ml/min; Est GFR (African American) 70.9 ml/min; Est GFR (Non-African American) 61.2 ml/min; Globulin 3.1 gm/dl (2.5-4.0); Potassium 4.5 mmol/L (3.5-5.1); Total Protein 6.8 gm/dl (6.0-8.3)
--- NOTE | 2023-05-01 08:45 | Hospitalist Progress Note ---
Date of Service May 01, 2023 Assessment & Plan (1) Abdominal pain: Plan: 47 yo male with PMHx of HLD, hypothyroidism, and HIV prophylaxis on PrEP presents with abdominal pain. Diverticulitis with microperforation Presented with 5 days abd discomfort. WBC elevation but not septic on admit CTAP w/ acute sigmoid divertic w/ microperf. No abscess Zosyn IV abx, IVF General surgery consulted Pain control/antiemetics prn Patient doing GREAT this morning, req to eat. Passing gas/no nausea or vomiting. Discussed w/ surgery and given clear liquids this morning (they saw after clears)--> ok w/ advancing diet for this evening. Will plan full liquids but if doing great can consider low fiber. Otherwise will plan for low fiber in AM/possible dc on Abx x 10 days. Will have CM arrange for GI f/u outpatient for c-scope once healed from current infection. Hypothyroidism cont. levothyroxine HIV prophylaxis -on Descovy for PrEP. F/u PCP for continued monitoring of renal function to see if contribtuing. Cr appears around baseline DVT ppx: SCDs; ambulation encouraged. Given likely dc for AM, can hold off Heparin SQ for now (2) Perforation of sigmoid colon due to diverticulitis: (3) Hypothyroidism: (4) Hyperlipidemia: (5) High risk sexual behavior: Plan advancing diet to full liquids, possible low fiber likely able to dc in AM on low fiber diet and GI f/u Admission and Anticipated Discharge Date Admission Date: April 30, 2023 Subjective eval this morning, doing well. passing gas, no BM. Prior did cologaurd which was unremarkable w/ Dr Bertrand but reports had c-scope prior to moving to the area. This is first episode, discussed will need GI f/u and can be arranged. He is wondering about further testing. Will message surgery about some clear liquids as patient reports he is starving and getting a little bit of headache. No nausea/vomiting at present. Results & Data Results & Data Vital Signs (Past 12 Hours) Vital Signs Temp Pulse Resp BP Pulse Ox O2 Del Method 05/01/23 07:36 36.7 C 65 16 115/76 96 Room Air 04/30/23 22:19 36.8 C 66 17 99/62 L 93 Room Air Laboratory Results 05/01/23 05/01/2323 Range/Units 06:06 06:06 Unknown WBC 7.12 (4.8-10.8) K/ul RBC 4.41 L (4.70-6.10) M/uL Hgb 13.1 L (14.0-18.0) g/dl Hct 38.7 L (42.0-52.0) % MCV 87.8 (80.0-100.0) fL MCH 29.7 (25.0-34.0) pg MCHC 33.9 (32.0-36.0) g/dL RDW Std Deviation 42.1 (36.4-46.3) fL RDW Coeff of Viviane 13.1 (11.5-14.5) % Plt Count 211 (130-400) K/uL MPV 9.9 (9.4-12.4) fL Immature Gran % (Auto) 0.4 % Neut % (Auto) 56.7 % Lymph % (Auto) 31.3 % [place] % (Auto) 8.0 % Eos % (Auto) 2.9 % Baso % (Auto) 0.7 % Neut # (Auto) 4.03 (1.40-6.50) K/uL Lymph # (Auto) 2.23 (1.20-3.40) K/uL [place] # (Auto) 0.57 (0.11-0.59) K/uL Eos # (Auto) 0.21 (0.00-0.50) K/uL Baso # (Auto) 0.05 (0.00-0.20) K/uL Immature Gran # (Auto) 0.03 (0.01-0.20) K/uL Sodium 138 (136-145) mmol/L Potassium 4.5 D (3.5-5.1) mmol/L Chloride 108 H (98-107) mmol/L Carbon Dioxide 26 (21-32) mmol/L Anion Gap 4 (3-11) BUN 17 (6-23) mg/dl Creatinine 1.35 (0.6-1.4) mg/dl Est Cr Clr Drug Dosing 78.8 ml/min Est GFR ( Amer) 70.9 ml/min Est GFR (Non-Af Amer) 61.2 ml/min BUN/Creatinine Ratio 12.6 (10-20) Glucose 83 (70-99(Fasting)) mg/dl Calcium 8.4 L (8.6-10.3) mg/dl Magnesium 2.0 (1.7-2.4) mg/dl Total Bilirubin 0.7 (0.2-1.0) mg/dl Direct Bilirubin (0-0.2) mg/dl AST 13 (13-39) U/L ALT 10 (7-52) U/L Alkaline Phosphatase 42 (34-104) U/L Total Protein 6.8 (6.0-8.3) gm/dl Albumin 3.7 (3.4-5.0) gm/dl Globulin 3.1 (2.5-4.0) gm/dl Albumin/Globulin Ratio 1.2 (0.9-2) Lipase (11-82) U/L Urine Color Yellow Urine Appearance Clear (Clear) Urine pH 5.0 (4.5-7.5) Ur Specific [place] 1.009 (1.000-1.030) Urine Protein Negative (Negative) Urine Glucose (UA) Negative (Negative) Urine Ketones Negative (Negative) Urine Blood Negative (Negative) Urine Nitrite Negative (Negative) Urine Bilirubin Negative (Negative) Urine Urobilinogen Negative (Negative) Ur Leukocyte Esterase Negative (Negative) 04/30/23 04/30/23 Range/Units 12:06 12:06 WBC 11.35 H (4.8-10.8) K/ul RBC 5.03 (4.70-6.10) M/uL Hgb 15.2 (14.0-18.0) g/dl Hct 42.9 (42.0-52.0) % MCV 85.3 (80.0-100.0) fL MCH 30.2 (25.0-34.0) pg MCHC 35.4 (32.0-36.0) g/dL RDW Std Deviation 40.9 (36.4-46.3) fL RDW Coeff of Viviane 13.2 (11.5-14.5) % Plt Count 248 (130-400) K/uL MPV 10.1 (9.4-12.4) fL Immature Gran % (Auto) 0.4 % Neut % (Auto) 68.6 % Lymph % (Auto) 21.9 % [place] % (Auto) 7.6 % Eos % (Auto) 1.1 % Baso % (Auto) 0.4 % Neut # (Auto) 7.78 H (1.40-6.50) K/uL Lymph # (Auto) 2.49 (1.20-3.40) K/uL [place] # (Auto) 0.86 H (0.11-0.59) K/uL Eos # (Auto) 0.13 (0.00-0.50) K/uL Baso # (Auto) 0.04 (0.00-0.20) K/uL Immature Gran # (Auto) 0.05 (0.01-0.20) K/uL Sodium 138 (136-145) mmol/L Potassium 3.7 (3.5-5.1) mmol/L Chloride 107 (98-107) mmol/L Carbon Dioxide 23 (21-32) mmol/L Anion Gap 8 (3-11) BUN 17 (6-23) mg/dl Creatinine 1.22 (0.6-1.4) mg/dl Est Cr Clr Drug Dosing 87.4 ml/min Est GFR ( Amer) 80.2 ml/min Est GFR (Non-Af Amer) 69.2 ml/min BUN/Creatinine Ratio 13.9 (10-20) Glucose 115 H (70-99(Fasting)) mg/dl Calcium 9.4 (8.6-10.3) mg/dl Magnesium (1.7-2.4) mg/dl Total Bilirubin 0.5 (0.2-1.0) mg/dl Direct Bilirubin 0.1 (0-0.2) mg/dl AST 16 (13-39) U/L ALT 13 (7-52) U/L Alkaline Phosphatase 53 (34-104) U/L Total Protein 8.2 (6.0-8.3) gm/dl Albumin 4.5 (3.4-5.0) gm/dl Globulin (2.5-4.0) gm/dl Albumin/Globulin Ratio (0.9-2) Lipase 49 (11-82) U/L Urine Color Urine Appearance (Clear) Urine pH (4.5-7.5) Ur Specific [place] (1.000-1.030) Urine Protein (Negative) Urine Glucose (UA) (Negative) Urine Ketones (Negative) Urine Blood (Negative) Urine Nitrite (Negative) Urine Bilirubin (Negative) Urine Urobilinogen (Negative) Ur Leukocyte Esterase (Negative) Diagnostic Findings Abdomen/Pelvis CT 04/30/23 12:[address] WITH IV CONTRAST CT DOSE: 1430.2 mGy.cm HISTORY: Left lower quadrant abdominal pain. TECHNIQUE: Multiaxial CT images of the abdomen and pelvis were performed following the use of intravenous contrast. A dose lowering technique was utilized adhering to the principles of ALARA. COMPARISON STUDY: None. FINDINGS: The lung bases are clear. No acute fractures identified. Mild hepatic steatosis. The gallbladder, pancreas, spleen, and adrenal glands are within normal limits. Bilateral nephrolithiasis. No ureteral stones. No hydronephrosis. There are few small bilateral renal hypodense lesions. The majority these are subcentimeter in size and therefore too small to characterize. Statistically these represent cysts. There is a 1.1 cm exophytic hypodense lesion within the right kidney which also favors a cyst. The main portal vein is patent. Normal caliber abdominal aorta. No retroperitoneal or pelvic lymphadenopathy. The bladder is unremarkable. No pelvic free fluid. There is an inflamed diverticulum within the proximal sigmoid colon with focal bowel wall thickening at this location. There is associated pericolonic fat stranding and a punctate focus of extraluminal gas adjacent to the diverticulum. Therefore, this is consistent with microperforation of an acute sigmoid diverticulitis. No loculated fluid collections to suggest an abscess. No evidence for a bowel obstruction. Normal appendix. IMPRESSION: 1. Acute sigmoid diverticulitis with a punctate focus of extraluminal gas consistent with microperforation. No abscess identified at this time. 2. Normal appendix. 3. No evidence for a bowel obstruction. 4. Bilateral nephrolithiasis. No ureteral stones. No hydronephrosis. 5. Mild hepatic steatosis. ACT 112: Negative or not required by law. Electronically signed by: Chris Marie M.D. 04/30/2023 2:33 PM PG Care Time/CCT Total # of Minutes Spent Total Time Spent with Patient: Total time spent is greater than 50% in coordination of care (as documented) at patient's floor/unit and/or counseling patient: Coding Level of Care Code 31685 SUB INP/OBS CARE 3/50MIN Diagnoses Abdominal pain R10.9 Perforation of sigmoid colon due to diverticulitis K57.20 Hypothyroidism E03.9 Hyperlipidemia E78.5 High risk sexual behavior Z72.51
[2023-05-01] MEDS ORDERED: INFLUENZA VIRUS QUADRIVALENT VACCINE (IIV4) 0.5 ML SYR IM ONE (09:00)
[2023-05-01] MEDS ORDERED: NON-FORMULARY MEDICATION (Emtricitabine-Tenofovir Alafen [Descovy] 200-25 mg tablet) PO SCH (09:00)
[2023-05-02] MEDS: PIPERACILLIN/TAZOBACTAM 4.5 GM in DEXTROSE 5% MINI-B 100 ML IV SCH (05:17)
[2023-05-02] MEDS: LEVOTHYROXINE SODIUM 125 MCG TABLET PO SCH (05:18)
--- NOTE | 2023-05-02 05:27 | Surgery Progress Note ---
Date of Service May 02, 2023 Assessment & Plan (1) Diverticulitis of colon with perforation: Plan: The patient has been admitted on the hospitalist service. We recommend proceeding as follows: CT scan of the abdomen and pelvis at time of admission showed acute sigmoid diverticulitis with a microperforation and no identifiable abscess Continue diet as tolerated IV fluids can be discontinued once oral intake deemed to be adequate Continue analgesics Continue antiemetics Continue antibiotics in form of Zosyn with plan to transition to oral antibiotics at time of discharge Encourage ambulation Check a.m. labs are available Admission and Anticipated Discharge Date Admission Date: April 30, 2023 Supervising Physician Co-Signing Physician Notes Patient discussed with RICHMOND Schmitz, labs reviewed, agree with above. Admitted with uncomplicated diverticulitis with microperforation, responded to IV antibiotics. Advance to low fiber diet, discharged home on 10 days total antibiotics. Follow-up as an outpatient with PCP and will likely need repeat colonoscopy as he has not had one in 5 years. Subjective Patient notes he is doing well. He has had his diet advanced to full liquids which he tolerated without exacerbating abdominal pain. He notes he is passing flatus and has had a bowel movement over the past 24 hours. He denies any fevers, shakes, or chills. He denies any nausea or vomiting. Physical Exam Gastrointestinal (Abdomen): Abdomen is soft and nondistended. There is minimal pain with palpation. There is no rebound tenderness or guarding. Results & Data Vital Signs (Past 12 Hours) Vital Signs Temp Pulse Resp BP Pulse Ox O2 Del Method 05/01/23 20:34 36.5 C 59 L 16 156/98 H 96 Room Air PG Care Time/CCT Total # of Minutes Spent Total Time Spent with Patient: Total time spent is greater than 50% in coordination of care (as documented) at patient's floor/unit and/or counseling patient: Coding Level of Care Code 07890 SUB INP/OBS CARE Diagnoses Diverticulitis of colon with perforation K57.20
[2023-05-02 08:02] LABS: Hematocrit (blood only) 40.2 % (42.0-52.0); Hemoglobin 13.8 g/dl (14.0-18.0); Mean Corpuscular Hemoglobin 29.4 pg (25.0-34.0); Mean Corpuscular Hgb Conc 34.3 g/dL (32.0-36.0); Mean Corpuscular Volume 85.7 fL (80.0-100.0); Mean Platelet Volume 9.7 fL (9.4-12.4); Platelet Count 250 K/uL (130-400); RDW Coefficient of Variation 12.8 % (11.5-14.5); Red Blood Count 4.69 M/uL (4.70-6.10)
--- NOTE | 2023-05-02 08:04 | Discharge Summary ---
Date of Service May 02, 2023 Admission HPI Per Admitting Provider 47 yo male with PMHx of HLD, hypothyroidism, and HIV prophylaxis on PrEP presents with abdominal pain. 5 days ago patient started feeling abdominal discomfort especially with bowel movements. A couple of days later he started developing fever, chills, fatigue, muscle weakness, constipation and headache. Denies chest pain, shortness of breath, dysuria, N/V/D, blood in stool. He did take some Tylenol at home which did seem to help. No h/o abdominal surgeries. Admission Exam Per Admitting Provider Constitutional: in no acute distress, pleasant and normal affect, intact memory. AOx.3. Vitals as above. HEENT: No scleral injection or discharge. Moist mucous membranes. Neck: Supple without lymphadenopathy or thyromegaly. Trachea midline. Lungs: CTAB, no wheezes/rales/rhonchi. Cardiac: Regular rate and rhythm.No murmurs.No extremity edema. 2+ distal peripheral pulses. Abdomen: Soft and nondistended.+tenderness specifically at LLQ without guarding.No hepatosplenomegaly. MSK: No cyanosis or clubbing. Extremities motor strength 5/5. Skin: No rashes, warm, dry. Neurologic: no focal deficits Principal Diagnosis Acute Diverticulitis Discharge Exam General: WD/WN male sitting up in bed, NAD HEENT: head normocephalic, atraumatic, mmm, trachea midline Resp; CTA, no w/c/r, on room air CV: RRR (slightly yves at times), no significant m/r/g, no pitting edema/calf tenderness GI: +BS, soft, no guarding/rigidity, minimal tenderness reported but no overt tenderness on exam : no sal MSK/Neuro: no focal deficits, no slurred speech, answering questions appropriately Psych: AOx3, cooperative with exam Discharge Data Allergies Allergy/AdvReac Type Severity Reaction Status Date / Time gluten Allergy Verified 05/01/23 12:24 No Known Drug Allergies Allergy Unknown Verified 04/30/23 15:38 Consultations 04/30/23 14:42 Consult General Surgery Routine ED Decision to Admit Stat 05/01/23 16:18 Consult [facility] material worker Routine Ordered Studies Abdomen/Pelvis CT 04/30/23 12:[address] WITH IV CONTRAST CT DOSE: 1430.2 mGy.cm HISTORY: Left lower quadrant abdominal pain. TECHNIQUE: Multiaxial CT images of the abdomen and pelvis were performed follo wing the use of intravenous contrast. A dose lowering technique was utilized adhering to the principles of ALARA. COMPARISON STUDY: None. FINDINGS: The lung bases are clear. No acute fractures identified. Mild hepatic steatosis. The gallbladder, pancreas, spleen, and adrenal glands are within normal limits. Bilateral nephrolithiasis. No ureteral stones. No hydronephrosis. There are few small bilateral renal hypodense lesions. The majority these are subcentimeter in size and therefore too small to characterize. Statistically these represent cysts. There is a 1.1 cm exophytic hypodense lesion within the right kidney which also favors a cyst. The main portal vein is patent. Normal caliber abdominal aorta. No retroperitoneal or pelvic lymphadenopathy. The bladder is unremarkable. No pelvic free fluid. There is an inflamed diverticulum within the proximal sigmoid colon with focal bowel wall thickening at this location. There is associated pericolonic fat stranding and a punctate focus of extraluminal gas adjacent to the diverticulum. Therefore, this is consistent with microperforation of an acute sigmoid diverticulitis. No loculated fluid collections to suggest an abscess. No evidence for a bowel obstruction. Normal appendix. IMPRESSION: 1. Acute sigmoid diverticulitis with a punctate focus of extraluminal gas consistent with microperforation. No abscess identified at this time. 2. Normal appendix. 3. No evidence for a bowel obstruction. 4. Bilateral nephrolithiasis. No ureteral stones. No hydronephrosis. 5. Mild hepatic steatosis. ACT 112: Negative or not required by law. Electronically signed by: Chris Marie M.D. 04/30/2023 2:33 PM Hospital Course (1) Abdominal pain: 47 yo male with PMHx of HLD, hypothyroidism, and HIV prophylaxis on PrEP presents with abdominal pain. Diverticulitis with microperforation Presented with 5 days abd discomfort. WBC elevation but not septic on admit CTAP w/ acute sigmoid divertic w/ microperf. No abscess Zosyn IV abx, IVF and supportive care, antiemetics/pain control General surgery consult Diet advanced from clears --> full liquid --> low fiber without issues. +BM prior to dc Discussed low fiber diet x 2 weeks, then advance as tolerated. Continue Augmentin x 10 day total course. CM to arrange for f/u with GI in 6-8wks, consult placed prior to dc for Navigator. Of note, called by nursing staff after patient discharged that roommate testing positive for covid/exposure. Does not feel was in close contact but patient was coughing per Mr Alvarenga's report. Discussed monitoring for any symptoms/self isolation in the meantime. To follow up with primary care if having any fevers/chills, chest pain/shortness of breath, loss taste/smell, or ill feeling for testing. Hypothyroidism cont. levothyroxine HIV prophylaxis On Descovy for PrEP. Cr appears around baseline F/u PCP for continued monitoring of renal function to see if contributing. (2) Perforation of sigmoid colon due to diverticulitis: (3) Hypothyroidism: (4) Hyperlipidemia: (5) High risk sexual behavior: Plan discharged home on Augmentin to complete course, low fiber diet. GI f/u for scope 6-8wks Total Time Total Time Spent Total Time Spent (In Minutes): 40 Discharge Plan Discharge Items Patient Disposition: Home - Self-Care Reason For Visit: ABDOMINAL PAIN Discharge Diagnosis: Diverticulitis with microperforation Goals: You have been hospitalized for an acute medical problem. During your stay at [facility], we have made an effort to correct the problem that brought you to the hospital while keeping you as comfortable as possible. Medications were used to bring your condition under control and your discharge instructions will include directions for any medications you should take after leaving the hospital. Please make sure you see your Primary Care Provider as part of your follow up plan. Activity: As commented below Non-emergency contact: Primary Care Provider and Radio Despatcher Call non-emergency contact if: you have any medication questions, your symptoms worsen, your pain is concerning for you and you have a fever Follow-up/Referrals: Dwayne Perez MD [Primary Care Provider] - Diet: Low Fiber Diet Comment: low fiber diet x 2 weeks, then advance as tolerated Addtl Attending Provider Instructions: You have been hospitalized for abdominal pain and found to have acute diverticulitis (inflammation in your intestines) with evidence for a microperforation. Thankfully, no evidence for any fluid collection/abscess, and general surgery was consulted and you have been managed conservatively with bowel rest, IV fluids and pain control as well as antibiotics. You are being sent home on a course of Augmentin to complete 10 days total treatment. You can take 1000mg of Tylenol every 8 hours for pain as needed. Your diet has been advanced to low fiber and you should continue a LOW FIBER diet for 2 weeks then can advance back to usual diet as tolerated. I have a message out to our medical case manager to call you this upcoming week to arrange follow up for colonoscopy in 6-8 weeks once healed from the acute infection as recommended. Please follow up with primary care in the next 7-10 days to monitor your progress after discharge. Please return to the ER with any increased pain, fever, or for any other symptoms concerning for you. It has been a pleasure being a part of the medical team providing for you while you have been in the hospital. Take care! Pending Studies at Discharge: No Stand-Alone Forms: [facility], Work/School Release, Smoking Cessation Medications and DC Order Prescriptions: New amoxicillin-pot clavulanate 875-125 mg tablet 1 tab PO BID 8 Days Qty: 17 0RF Continued Descovy 200-25 mg tablet 1 tab PO DAILY Qty: 90 1RF levothyroxine [Tirosint] 125 mcg capsule 125 mcg PO DAILY Qty: 90 0RF Zyrtec 10 mg capsule 20 mg PO DAILY Discharge Orders: Discharge Order (Routine); Ordered 05/02/23 Ordered By: Delisa Ortiz/Other Patient Handouts: Low-Fiber Diet Admission Data Admit Date/Time: 04/30/23 15:58 Attending Provider: Fermín Cameron Admit Provider: Rubén Church Primary Care Provider: Dwayne Perez V. Other Providers: Alejandro Yoon ; Ke Escobar Other Interventions: Discharge Summary Assessment (RN) Last Done: 05/02/23 09:58 Supervising Physician Co-Signing Physician Notes During face to face encounter, I obtained a brief physical examination, discussed hospital stay with patient and discharge instructions with patient. I discussed discharge plan of care with CECILIO gilliam. I reviewed above note and agree with it except for the following: Patient will be discharged with diagnosis of diverticulitis. Patient tolerating diet, will be placed on above antibiotics: augmentin Coding Level of Care Code 01097 INP/OBS DISCH >30 MIN Diagnoses Abdominal pain R10.9 Perforation of sigmoid colon due to diverticulitis K57.20 Hypothyroidism E03.9 Hyperlipidemia E78.5 High risk sexual behavior Z72.51
[2023-05-02 08:18] LABS: BUN Creatinine Ratio 8.9 (10-20); Calcium 9.4 mg/dl (8.6-10.3); Creatinine Clr Calc Pharmacy 86.5 ml/min; Est GFR (African American) 79.4 ml/min; Est GFR (Non-African American) 68.5 ml/min; Magnesium 2.1 mg/dl (1.7-2.4); Potassium 4.2 mmol/L (3.5-5.1)
== END 2023-05-02 10:25 | disposition home or self-care (01) | DRG 392 ==
LOC: ED 11:31 → 3N 15:58 → SUATTDRO 15:58 → INTOOBSV 15:58 → 3N 17:35